=== PATIENT | male | born 1975 | race Caucasian/White ===

== ENCOUNTER 2017-04-21 14:22 | Emergency (ER) | payer OTHER ==
[2017-04-21] MEDS ORDERED: Sodium Chloride 0.9% 1,000 ML IV ONE ×2 (14:56→15:53)
--- NOTE | 2017-04-21 14:58 | EDM.PDOC ---
ED HPI GENERAL MEDICAL PROBLEM - General Chief Complaint: Abdominal Pain Stated Complaint: ABDOMINAL PAIN Time Seen by Provider: 04/21/17 14:40 Source of Information: Reports: Patient History Limitations: Reports: No Limitations - History of Present Illness INITIAL COMMENTS - FREE TEXT/NARRATIVE: Marvin is a 41yo male presents ambulatory to ED today with worsening abdominal pain starting at around 2245 last evening. He was not able to sleep well as he could not get comfortable. Initially pain was diffuse below his belly button. This morning pain has localized to more the RLQ. He did have pain shooting down into his groin and testicle region last night but none today. He had a bowel movement last night, no diarrhea, no n/v. He has remote hx of kidney stone 20+ years ago. No abdominal surgeries, no prior abd problems such as diverticulitis , crohns or UC. No sick contacts recently. No hematuria or other urinary complaints/concerns, no back pain or radiation of pain to his back/shoulders with this abdominal pain. He ate chili at around 2030 last evening, nothing to eat yet today but has been drinking water and one [employer] energy drink today. He does have type 2 DM with insulin pump. Last sugar at home was 95 prior to coming in. Sugar upon arrival was 94 here. He has not noted change in his blood sugars or insulin utilization the past 24+ hours. PCP is More Fraser, CDE is Nunu Coronado. Duration: Hour(s): (14) Location: Reports: Abdomen Quality: Reports: Pressure, Sharp, Stabbing Severity: Moderate Improves with: Reports: Rest (lying completely still) Worsens with: Reports: Movement Associated Symptoms: Reports: Fever/Chills (subjective fever), Loss of Appetite. 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 Lower Abdomen Pain Score (Numeric/FACES): 6 - Related Data Allergies Allergy/AdvReac Type Severity Reaction Status Date / Time azithromycin Allergy Rash Verified 04/21/17 14:39 clindamycin Allergy Rash Verified 04/21/17 14:39 Home Meds: Home Meds Insulin Aspart [NovoLOG] 0 unit SQ WITHMEALSANDBED 04/21/17 [History] Lisinopril 20 mg PO DAILY 04/21/17 [History] Pitavastatin [Livalo] 2 mg PO DAILY 04/21/17 [History] Social & Family History - Tobacco Use Smoking Status *Q: Never Smoker Second Hand Smoke Exposure: No - Recreational Drug Use Recreational Drug Use: No ED ROS GENERAL - Review of Systems Review Of Systems: See Below Constitutional: Reports: Fever (subjective- has felt "really warm"). Denies: Chills HEENT: Reports: No Symptoms Respiratory: Reports: No Symptoms. Denies: Shortness of Breath, Cough Cardiovascular: Reports: No Symptoms. Denies: Chest Pain GI/Abdominal: Reports: Abdominal Pain (initially was below belly button, has now localized to RLQ as of this afternoon), Decreased Appetite, Other (had normal BM last night and this morning.). Denies: Black Stool, Constipation, Diarrhea, Nausea, Vomiting : Reports: No Symptoms. Denies: Frequency, Hematuria, Pain, Urgency, Urinary Retention Musculoskeletal: Reports: No Symptoms. Denies: Back Pain Neurological: Reports: No Symptoms ED EXAM, GI/ABD - Physical Exam Exam: See Below Exam Limited By: No Limitations General Appearance: Alert, WD/WN, No Apparent Distress Eyes: Bilateral: Normal Appearance, EOMI Ears: Normal External Exam, Hearing Grossly Normal Nose: Normal Inspection Throat/Mouth: Normal Inspection, Normal Lips, Normal Teeth, Normal Voice, No Airway Compromise Head: Atraumatic, Normocephalic Neck: Normal Inspection Respiratory/Chest: No Respiratory Distress, Lungs Clear, Normal Breath Sounds Cardiovascular: Regular Rate, Rhythm, No Edema, No Murmur GI/Abdominal Exam: Normal Bowel Sounds, Soft, No Organomegaly, No Distention, Tender (most tender to RLQ, more tender with deep palp--no rebound). No: Guarding, Rigid, Rebound (Male) Exam: Deferred Rectal (Males) Exam: Deferred Back Exam: Normal Inspection. No: CVA Tenderness (L), CVA Tenderness (R) Extremities: Normal Inspection, No Pedal Edema, Normal Capillary Refill Neurological: Alert, Oriented, CN II-XII Intact, Normal Cognition Psychiatric: Normal Affect, Normal Mood Skin Exam: Warm, Dry, Intact Course - Vital Signs Last Recorded V/S: Last Vital Signs Temp 97.9 F 04/21/17 14:32 Pulse 77 04/21/17 14:32 Resp 28 H 04/21/17 14:32 BP 147/79 H 04/21/17 14:32 Pulse Ox 96 04/21/17 14:32 - Orders/Labs/Meds Orders: Active Orders 24 hr Category Date Time Status Sodium Chloride 0.9% [Normal Saline] 1,000 ml Med 04/21/17 15:53 Active IV ONETIME Medication Orders Sodium Chloride (Normal Saline) 1,000 mls @ 250 mls/hr IV ONETIME ONE Stop: 04/21/17 19:52 Labs: Laboratory Tests 04/21/17 04/21/17 04/21/17 Range/Units 14:49 14:50 14:50 WBC 13.15 H (4.23-9.07) K/mm3 RBC 5.01 (4.63-6.08) M/mm3 Hgb 14.5 (13.7-17.5) gm/L Hct 42.2 (40.1-51.0) % MCV 84.2 (79.0-92.2) fl MCH 28.9 (25.7-32.2) pg MCHC 34.4 (32.2-35.5) g/dl RDW Std Deviation 38.2 (35.1-43.9) fL Plt Count 216 (163-337) K/mm3 MPV 9.0 L (9.4-12.3) fl Neut % (Auto) 71.5 H (34.0-67.9) % Lymph % (Auto) 18.9 L (21.8-53.1) % Hayes % (Auto) 8.4 (5.3-12.2) % Eos % (Auto) 0.8 (0.8-7.0) Baso % (Auto) 0.2 (0.1-1.2) % Neut # (Auto) 9.42 H (1.78-5.38) K/mm3 Lymph # (Auto) 2.48 (1.32-3.57) K/mm3 Hayes # (Auto) 1.10 H (0.30-0.82) K/mm3 Eos # (Auto) 0.11 (0.04-0.54) K/mm3 Baso # (Auto) 0.02 (0.01-0.08) K/mm3 Sodium 139 (136-145) mEq/L Potassium 3.5 (3.5-5.1) mEq/L Chloride 102 (98-107) mEq/L Carbon Dioxide 25 (21-32) mEq/L Anion Gap 15.5 H (5-15) BUN 14 (7-18) mg/dL Creatinine 1.0 (0.7-1.3) mg/dL Est Cr Clr Drug Dosing 90.89 mL/min Estimated GFR (MDRD) > 60 (>60) mL/min BUN/Creatinine Ratio 14.0 (14-18) Glucose 103 (74-106) mg/dL POC Glucose 94 (70-105) mg/dL Calcium 8.7 (8.5-10.1) mg/dL Total Bilirubin 0.9 (0.2-1.0) mg/dL AST 23 (15-37) U/L ALT 49 (16-63) U/L Alkaline Phosphatase 80 (46-116) U/L C-Reactive Protein 2.5 H* (<1.0) mg/dL Total Protein 7.4 (6.4-8.2) g/dl Albumin 3.9 (3.4-5.0) g/dl Globulin 3.5 gm/dL Albumin/Globulin Ratio 1.1 (1-2) Urine Color (Yellow) Urine Appearance (Clear) Urine pH (5.0-8.0) Ur Specific Irwin (1.005-1.030) Urine Protein (Negative) Urine Glucose (UA) (Negative) Urine Ketones (Negative) Urine Occult Blood (Negative) Urine Nitrite (Negative) Urine Bilirubin (Negative) Urine Urobilinogen (0.2-1.0) Ur Leukocyte Esterase (Negative) Urine RBC (0-5) /hpf Urine WBC (0-5) /hpf Ur Epithelial Cells (0-5) /hpf Urine Bacteria (FEW) /hpf Urine Mucus (FEW) /hpf 04/21/17 Range/Units 14:55 WBC (4.23-9.07) K/mm3 RBC (4.63-6.08) M/mm3 Hgb (13.7-17.5) gm/L Hct (40.1-51.0) % MCV (79.0-92.2) fl MCH (25.7-32.2) pg MCHC (32.2-35.5) g/dl RDW Std Deviation (35.1-43.9) fL Plt Count (163-337) K/mm3 MPV (9.4-12.3) fl Neut % (Auto) (34.0-67.9) % Lymph % (Auto) (21.8-53.1) % Hayes % (Auto) (5.3-12.2) % Eos % (Auto) (0.8-7.0) Baso % (Auto) (0.1-1.2) % Neut # (Auto) (1.78-5.38) K/mm3 Lymph # (Auto) (1.32-3.57) K/mm3 Hayes # (Auto) (0.30-0.82) K/mm3 Eos # (Auto) (0.04-0.54) K/mm3 Baso # (Auto) (0.01-0.08) K/mm3 Sodium (136-145) mEq/L Potassium (3.5-5.1) mEq/L Chloride (98-107) mEq/L Carbon Dioxide (21-32) mEq/L Anion Gap (5-15) BUN (7-18) mg/dL Creatinine (0.7-1.3) mg/dL Est Cr Clr Drug Dosing mL/min Estimated GFR (MDRD) (>60) mL/min BUN/Creatinine Ratio (14-18) Glucose (74-106) mg/dL POC Glucose (70-105) mg/dL Calcium (8.5-10.1) mg/dL Total Bilirubin (0.2-1.0) mg/dL AST (15-37) U/L ALT (16-63) U/L Alkaline Phosphatase (46-116) U/L C-Reactive Protein (<1.0) mg/dL Total Protein (6.4-8.2) g/dl Albumin (3.4-5.0) g/dl Globulin gm/dL Albumin/Globulin Ratio (1-2) Urine Color Yellow (Yellow) Urine Appearance Clear (Clear) Urine pH 7.0 (5.0-8.0) Ur Specific Irwin 1.015 (1.005-1.030) Urine Protein Negative (Negative) Urine Glucose (UA) Negative (Negative) Urine Ketones Negative (Negative) Urine Occult Blood 1+ H (Negative) Urine Nitrite Negative (Negative) Urine Bilirubin Negative (Negative) Urine Urobilinogen 0.2 (0.2-1.0) Ur Leukocyte Esterase Negative (Negative) Urine RBC 0-5 (0-5) /hpf Urine WBC 0-5 (0-5) /hpf Ur Epithelial Cells 0-5 (0-5) /hpf Urine Bacteria Few (FEW) /hpf Urine Mucus Not seen (FEW) /hpf Noted WBC mildly elevated; 1+ blood on UA, will order CT of abd/pelvis without contrast to r/o stone vs appy at this time. Meds: Medications Generic Name Dose Route Start Last Admin Trade Name Freq PRN Reason Stop Dose Admin Sodium Chloride 1,000 mls @ 250 mls/hr 04/21/17 15:53 Normal Saline IV 04/21/17 19:52 ONETIME ONE Discontinued Medications Generic Name Dose Route Start Last Admin Trade Name Freq PRN Reason Stop Dose Admin Sodium Chloride 1,000 mls @ 999 mls/hr 04/21/17 14:56 04/21/17 15:08 Normal Saline IV 04/21/17 15:56 999 mls/hr ONETIME ONE Administration - Radiology Interpretation CT Results Date: 04/21/17 (Report with findings of proximal appendix is prominent in size with surrounding inflammatory change which is felt compatible with appendicitis) - Re-Assessments/Exams Free Text/Narrative Re-Assessment/Exam: 04/21/17 17:05 Reviewed findings with patient- CT consistent with appendicitis. Call placed to Dr. Carson, General Surgeon booster station operator, hospital is on diversion with no beds. He states as patient is diabetic and no inpatient beds available recommends patient be transferred for further care/surgery. Call placed to [facility], talked with Dr. Albarado, Surgeon booster station operator. He accepts patient to surgical floor. Will arrange ambulance transport. Departure - Departure Time of Disposition: 17:07 Disposition: DC/Tfer to Acute Hospital 02 Clinical Impression: Appendicitis Qualifiers: Appendicitis type: acute appendicitis Acute appendicitis type: with localized peritonitis Qualified Code(s): K35.3 - Acute appendicitis with localized peritonitis - Discharge Information Referrals: More Fraser PA [Primary Care Provider] - Forms: ED Department Discharge - My Orders Last 24 Hours: My Active Orders 04/21/17 15:53 Sodium Chloride 0.9% [Normal Saline] 1,000 ml IV ONETIME - Assessment/Plan Last 24 Hours: My Active Orders 04/21/17 15:53 Sodium Chloride 0.9% [Normal Saline] 1,000 ml IV ONETIME
--- NOTE | 2017-04-21 16:34 | CT ---
CT abdomen and pelvis Technique: Multiple axial sections were obtained from above the dome of the diaphragm inferiorly through the pubic symphysis. Intravenous and oral contrast not utilized. Study has been performed as a ureteral stone protocol. Comparison: No prior abdominal imaging. Findings: Kidneys show no abnormal calcifications. No ureteral dilatation or ureteral stone is seen. Proximal appendix is prominent in size with surrounding inflammatory change. Distal appendix appears normal in size. Findings are felt compatible with appendicitis. Visualized lung bases shows nothing acute. Noncontrast appearance of the liver and spleen appears within normal limits. Adrenal glands show no nodule. Gallbladder contains no calcified gallstones. Pancreas is within normal limits. Aorta shows no aneurysmal dilatation. Mild atherosclerotic calcification is seen within the aorta and within the iliac arteries. No retroperitoneal adenopathy is seen. No mesenteric abnormalities are seen. Small fat-containing bilateral inguinal hernias are noted. Several lymph nodes are seen within the right lower abdomen believed to be increased in number due to the inflammatory change from the appendicitis. Impression: 1. No renal calculi, ureteral dilatation or ureteral stone is seen. 2. Proximal appendix is prominent in size with surrounding inflammatory change which is felt compatible with appendicitis. 3. Other incidental findings as noted above. Diagnostic code #5
[2017-04-21] MEDS ORDERED: Ertapenem 1 GM in Sodium Chloride 0.9% 100 ML IV ONE ×2 (17:34→18:00)
[2017-04-21] MEDS ORDERED: Ertapenem 1 GM Vial ONE (17:49)
[2017-04-21] MEDS ORDERED: Sodium Chloride 0.9% 100 ML ONE (17:52)
[2017-04-21] MEDS ORDERED: Sodium Chloride 0.9% 1,000 ML IV SCH (17:55)
[2017-04-21 18:14] VITALS: BP 130/76
== END 2017-04-21 18:38 ==
LOC: JD.ED 14:22
DX: K35.3 Acute appendicitis with localized peritonitis (principal); Z88.1 Allergy status to other antibiotic agents; Z79.899 Other long term (current) drug therapy
CPT/HCPCS: 36415; 74176; 80053; 81001; 82962; 85025; 86140; 96361; 96365; 99285; J1335; J7030; J7040

== ENCOUNTER 2017-09-21 11:07 | Emergency (ER) | payer OTHER ==
[2017-09-21] MEDS ORDERED: Diphtheria,Pertussis(Acell),Tetanus Vaccine 0.5 ML SDV IM ONE (11:24)
--- NOTE | 2017-09-21 11:25 | EDM.PDOC ---
ED HPI GENERAL MEDICAL PROBLEM - General Chief Complaint: Bite:Animal, Insect Stated Complaint: DOG BITE TO HAND Time Seen by Provider: 09/21/17 11:19 Source of Information: Reports: Patient History Limitations: Reports: No Limitations - History of Present Illness INITIAL COMMENTS - FREE TEXT/NARRATIVE: 42-year-old male presents to the ED with a dog bite to his left hand. He states he was playing with his dog vigorously and his hand got in way of the dog's teeth while he was trying to catch a ball. Patient is suffered a puncture jagged laceration less than a centimeter in size to the dorsal aspect of his left hand over the second metacarpal carpal. His concern is he could see white tissue moving in the wound with movement which proved to be adipose tissue. No tendon. There is a puncture wound to the palmar aspect of the hand at the base of the thumb. This is superficial. Is also a superficial wound to the lateral dorsal hands were ulnar aspect again superficial. He's not sure when his last tetanus toxoid was. Up-to-date on all shots. Of note he is right-hand dominant. Injury occurred about an hour and a half prior to arrival in the ED. Of note the patient is an insulin-dependent diabetic. 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: Reports: Other (see below) Other Treatments OPTICAL LABORATORY MECHANIC: washed with water and hydrogen peroxide Left Hand Pain Score (Numeric/FACES): 3 - Related Data Allergies Allergy/AdvReac Type Severity Reaction Status Date / Time azithromycin Allergy Rash Verified 04/21/17 14:39 clindamycin Allergy Rash Verified 04/21/17 14:39 Home Meds: Home Meds Dulaglutide [Trulicity] 1.5 mg SQ ASDIRECTED 04/21/17 [History] Insulin Aspart [NovoLOG] 0 unit SQ WITHMEALSANDBED 04/21/17 [History] Lisinopril 20 mg PO DAILY 02/11/18 [History] Pitavastatin [Livalo] 2 mg PO DAILY 04/21/17 [History] Amoxicillin/Potassium Clav [Augmentin 500-125 Tablet] 1 each PO BID #14 tablet 09/21/17 [Rx] Past Medical History HEENT History: Reports: Impaired Vision Other HEENT History: wears eye glasses Cardiovascular History: Reports: Hypertension Genitourinary History: Reports: Other (See Below) Other Genitourinary History: blood in urine - has known about it for some time. On Lisinopril as a preventative for future kidney disease due to Diabetes Musculoskeletal History: Reports: Fracture Endocrine/Metabolic History: Reports: Diabetes, Type II, Other (See Below) Other Endocrine/Metabolic History: insulin pump for approx 6 1/2 yrs. - Infectious Disease History Infectious Disease History: Reports: Chicken Pox, Measles - Past Surgical History Other HEENT Surgeries/Procedures: wisdom teeth removed GI Surgical History: Reports: Other (See Below) Other GI Surgeries/Procedures: anal fistula on L) buttocks, repair. Social & Family History - Caffeine Use Caffeine Use: Reports: Energy Drinks - Living Situation & Occupation Living situation: Reports: Occupation: Employed ED ROS GENERAL - Review of Systems Review Of Systems: See Below Constitutional: Reports: No Symptoms. Denies: Fever, Chills, Weakness HEENT: Reports: Other Respiratory: Reports: No Symptoms Cardiovascular: Reports: No Symptoms Endocrine: Reports: Fatigue GI/Abdominal: Reports: No Symptoms : Reports: Frequency Musculoskeletal: Reports: Other Skin: Reports: Other (Dog bite to the left hand reason for coming to the ED puncture wounds to the dorsal left hand) Neurological: Reports: No Symptoms Psychiatric: Reports: No Symptoms Hematologic/Lymphatic: Reports: No Symptoms Immunologic: Reports: No Symptoms ED EXAM, ANIMAL BITE - Physical Exam Exam: See Below Exam Limited By: No Limitations General Appearance: Alert, WD/WN, Mild Distress Extremities: Other (Examination limited to the left hand. Has a jagged nearly 1 cm laceration to the dorsal aspect of his left hand over the mid second metacarpal. His concern was he can see white tissue moving with movement of the finger clenching of his fist which proved to be adipose tissue not tendon. His have some mild venous bleeding with fist clenching. There is a more superficial puncture wound to the palmar aspect of the hand at the base of the thumb. There is also a second superficial wound ulnar aspect over the mid fifth metacarpal. Wound is not deep enough to require suture repair or bleeding actively. It is better left open to heal.) Neurological: Alert, Oriented, CN II-XII Intact, Normal Cognition, Normal Gait Psychiatric: Anxious Skin Exam: Normal Color, Warm/Dry Course - Vital Signs Last Recorded V/S: Last Vital Signs Temp 36.2 C 09/21/17 11:25 Pulse 84 09/21/17 11:25 Resp 20 09/21/17 11:25 BP 159/84 H 09/21/17 11:25 Pulse Ox 100 09/21/17 11:25 - Orders/Labs/Meds Orders: Active Orders 24 hr Category Date Time Status Vaccines to be Administered [RC] PER UNIT ROUTINE Care 09/21/17 11:24 Active Meds: Medications Discontinued Medications Generic Name Dose Route Start Last Admin Trade Name Freq PRN Reason Stop Dose Admin Diphtheria/Tetanus/Acell Pertussis 0.5 ml 09/21/17 11:24 09/21/17 11:40 Adacel IM 09/21/17 11:25 0.5 ml .ONCE ONE Administration - Radiology Interpretation Free Text/Narrative:: 42-year-old male who is an insulin-dependent diabetic presents to the ED with a dog bite to the dorsal aspect of his left hand. He has a superficial laceration less than 1 cm dorsal aspect of the left hand which has minimal active bleeding. There are 2 superficial wounds to the dorsal hand as well 1 over the ulnar aspect of the hand and mid fifth metacarpal. Second one is at the base of the thumb on the volar aspect of the hand. This is an accidental unprovoked bite by his own dog. He can make a full fist and there is no evidence of bony injury. Decision made to leave the wound to heal by secondary intention. Wounds will be cleansed and topical antibiotic bacitracin applied and dressings. He will leave these dressings in place for the next 2 days which shoots bring the venous bleeding under control. Ice pack to the area one half hour out of every [address] him on Augmentin 500 mg twice daily for the next 7 days to prevent secondary wound infection. His tetanus, diphtheria and pertussis vaccine will be updated today. Departure - Departure Time of Disposition: 11:50 Disposition: Home, Self-Care 01 Condition: Fair Clinical Impression: Dog bite of left hand Qualifiers: Encounter type: initial encounter Qualified Code(s): S61.452A - Open bite of left hand, initial encounter - Discharge Information *PRESCRIPTION DRUG MONITORING PROGRAM REVIEWED*: Not Applicable *COPY OF PRESCRIPTION DRUG MONITORING REPORT IN PATIENT AMY: Not Applicable Prescriptions: Amoxicillin/Potassium Clav [Augmentin 500-125 Tablet] 1 each PO BID #14 tablet Instructions: Animal Bite, [id number] Referrals: More Fraser PA [Primary Care Provider] - Forms: ED Department Discharge Additional Instructions: Evaluation the emergency room today in regards to dog bite to the left hand. There is a jagged 1 cm laceration over the dorsal hand overlying the second metacarpal bone of your hand. The tissue exposed is fatty tissue. There is no evidence of tendon exposure. Clinically you have full range of motion and no evidence of tendon injury although puncture wound came off a close to the extensor tendons. There are more superficial puncture wounds to the volar aspect of your left hand the base of your thumb and on the ulnar aspect of the hand. Decision made not to suture the wound closed as they tend to become infected. High risk of infection because of diabetes. Initial treatment was cleansing in the ED with topical antibiotic Xeroform dressing and a bit of a pressure dressing. This is to remain in place for the next 48 hours. After this she may cleanse the wound daily with soap and water. Showering is okay. Then apply topical antibiotic such bacitracin or Polysporin to the wound once daily and cover with a bandage until healed. You will need to take antibiotic Augmentin 500 mg twice daily for the next 7 days to prevent secondary wound infection. Suggest ice pack to the area one half hour out of every 4 hours today to stop any venous bleeding from the wound. Expect the wound to heal over the next 7-10 days. Return to medical care if any signs of infection develop such as increasing redness, swelling or pain, post obvious pus. - My Orders Last 24 Hours: My Active Orders 09/21/17 11:24 Vaccines to be Administered [RC] PER UNIT ROUTINE - Assessment/Plan Last 24 Hours: My Active Orders 09/21/17 11:24 Vaccines to be Administered [RC] PER UNIT ROUTINE
[2017-09-21 11:59] VITALS: BP 129/74
== END 2017-09-21 11:55 | disposition home or self-care (01) ==
LOC: JD.ED 11:07
DX: S61.452A Open bite of left hand, initial encounter (principal); I10 Essential (primary) hypertension; E11.9 Type 2 diabetes mellitus without complications; Z79.899 Other long term (current) drug therapy; Z88.1 Allergy status to other antibiotic agents; Z23 Encounter for immunization; W54.0XXA Bitten by dog, initial encounter
CPT/HCPCS: 90471; 90715; 99283; 99283-25